=== PATIENT | male | born 1935 | race Caucasian/White ===

== ENCOUNTER 2017-08-04 23:02 | Emergency (ER) | payer MEDICARE, BC ==
[2017-08-04] MEDS ORDERED: ONDANSETRON 4 MG TAB.RAPDIS PO ONE (23:20)
[2017-08-04] MEDS ORDERED: ONDANSETRON 4 MG TAB.RAPDIS ONE (23:21)
[2017-08-05] MEDS ORDERED: ONDANSETRON HCL/PF 2 MG/ML VIAL IV ONE (00:05)
[2017-08-05] MEDS ORDERED: ONDANSETRON HCL/PF 2 MG/ML VIAL ONE (00:12)
--- NOTE | 2017-08-05 00:13 | ERNOTE ---
Dizziness ER Record Presenting Symptoms: dizziness Time Seen by Provider: 08/05/17 00:00 Source: patient Exam Limitations: no limitations Immunizations: IMMUNIZATION HX Immunizations Up to Date Yes History of Influenza Vaccine Yes Hx Pneumococcal Vaccination Yes Allergies/Adverse Reactions: Allergies Allergy/AdvReac Type Severity Reaction Status Date / Time No Known Allergies Allergy Verified 11/27/15 16:59 Home Medications: HOME MEDICATIONS Meclizine HCl [Antivert] 12.5 mg PO Q6H PRN #20 tab 08/05/17 [Last Taken Unknown ] Ondansetron HCl [Zofran] 1 - 2 tab PO Q8H PRN #10 tab 08/05/17 [Last Taken Unknown] - History of Present Illness Narrative: Pt states he was sitting watching TV when he began to get a little dizzy. He decided to take a walk but this did not help him to get better. Timing and Duration: sudden onset Severity: max: moderate Severity: currently: moderate Associated Symptoms: Present: nausea, vomiting. Absent: headache, numbness Sense of movement: Present: vague Decreased ability to stand/walk:: Present: off balance Review of Systems - Review of Systems Constitutional: Present: recent illness - "sinus problems" EYE: Present: no symptoms reported ENT: Present: nose congestion Respiratory: Absent: shortness of breath, cough Cardiology: Present: no symptoms reported Gastrointestinal/Abdominal: Present: nausea, vomiting Genitourinary: Present: no symptoms reported Musculoskeletal: Present: no symptoms reported Skin: Present: no symptoms reported Neurological: Present: no symptoms reported Endocrine: Present: no symptoms reported Hematologic/Lymphatic: Present: no symptoms reported Psych: Present: no symptoms reported - Patient's Past Medical History Patient History - Medical: No pertinent hx Patient History - Cardiac/Respiratory: No pertinent hx Patient History - Cancer: Prostate, Radiation Therapy Patient History - Surgical Procedures: Hernia Repair Patient History - Other: None - Social History Living Situations: spouse Abuse History: No History of abuse Psych History: No pertinent hx Smoking Status: Former smoker Have you smoked in the past 12 months: No Do you dip or chew tobacco: No Alcohol Use: none Drug Use: none - Immunizations Immunizations Up to Date: Yes Hx Pneumococcal Vaccination: Yes History of Influenza Vaccine: Yes Physical Exam - Physical Exam General Appearance: Present: wd/wn, alert, mild distress Head Exam: Present: normal inspection, no evidence of injury Eye Exam: Normal inspection: bilateral, PERRL: bilateral, EOMI: bilateral Ears, Nose, Throat: Present: normal ENT inspection, normal pharynx Neck: Present: normal inspection, nontender, supple Respiratory: Present: no respiratory distress, no accessory muscle use, lungs clear Cardiovascular/Chest: Present: regular rate, rhythm, no murmur Back Exam: Present: normal inspection, normal range of motion Extremity Exam: Present: normal inspection, no edema Neurological Exam: Present: alert, oriented, normal mood/affect Skin Exam: Present: normal color, warm/dry Lymphatic Exam: Present: no adenopathy ED Progress - Results and Orders Patient's Lab Results:: I have reviewed the patient's lab results. Results and Orders: Laboratory Tests 08/05/17 08/05/17 08/05/17 00:25 00:25 02:39 WBC 8.2 Hgb 14.9 Hct 45.0 Plt Count 112 L Neutrophils % 85.9 H Sodium 141 Potassium 4.3 Chloride 105 Carbon Dioxide 27.5 Anion Gap 12.8 BUN 22 Creatinine 1.11 Random Glucose 132 H Calcium 9.8 Total Bilirubin 0.4 AST 24 ALT 26 Alkaline Phosphatase 83 Total Protein 7.4 Albumin 3.8 Amylase 69 Lipase 158 Urine Color Yellow Urine Appearance Clear Urine pH 6.5 Ur Specific Mobile 1.020 Urine Protein Negative Urine Glucose (UA) Negative Urine Ketones Negative Urine Blood Negative Urine Nitrate Negative Urine Bilirubin Negative Urine Urobilinogen Normal Ur Leukocyte Esterase Negative Urine RBC 0-5 Urine WBC 0-5 Ur Epithelial Cells 0-5 Amorphous Sediment Few - 1+ Urine Bacteria None seen Urine Culture Comments No culture indicated - Vital Signs Patient's Vital Signs:: I have reviewed the patient's vital signs. Vital Signs: Vital Signs 08/04/17 23:04 Temperature 36.1 C L Pulse Rate 74 Respiratory 14 Rate Blood Pressure 162/99 O2 Sat by Pulse 98 Oximetry - X-Ray X-Ray #1 X-Ray: abdomen Interpretation: Interp. by me, Reviewed by me X-ray Comments: Moderate stool throughout. No a/f levels or evidence for obstruction. No mass noted. - Progress/Reassessment Chief Complaint: Dizziness Progress:: Improved Departure Clinical Impression: Dizziness Constipation Qualifiers: Constipation type: slow transit constipation Qualified Code(s): K59.01 - Slow transit constipation Vomiting Qualifiers: Vomiting type: unspecified Vomiting Intractability: non-intractable Nausea presence: with nausea Qualified Code(s): R11.2 - Nausea with vomiting, unspecified - Departure Disposition: Home Follow Up Needed Condition: Good Instructions: Nausea, Adult, Vertigo, [id number], Constipation, Adult, Easy- to-Read Prescriptions: Meclizine HCl [Antivert] 12.5 mg PO Q6H PRN #20 tab PRN Reason: DIZZINESS Ondansetron HCl [Zofran] 1 - 2 tab PO Q8H PRN #10 tab PRN Reason: Nausea
[2017-08-05 00:33] LABS: Hemoglobin 14.9 gm/dL (13.5-18.0); Mean Cell Volume 85.9 fl (78-100); Mean Corpuscular Hemoglobin 28.4 pg (27-31); Mean Corpuscular Hgb Conc 33.1 g/dl (32-36); Neutrophil % 85.9 % (42-75.0); Platelet Count 112 K/mm3 (150-450); Red Blood Count 5.24 M/mm3 (4.7-6.0); Red Cell Distribution Width 14.3 % (11.5-14.0); White Blood Count 8.2 K/mm3 (4.0-10.5)
[2017-08-05 00:45] LABS: Albumin * 3.8 gm/dl (3.4-5.0); Anion Gap 12.8 mmol/L (6.8-13.8); BUN/Creatinine Ratio 19.8 (9.0-21.6); Bilirubin, Total 0.4 mg/dL (0.0-1.1); Ca. Corrected For Albumin 9.6 mg/dL (8.4-10.2); Calcium * 9.8 mg/dL (7.9-10.9); Carbon Dioxide 27.5 mmol/L (24-32.6); Potassium 4.3 mmol/L (3.4-4.6); Total Protein 7.4 gm/dL (6.2-8.2)
[2017-08-05] MEDS ORDERED: NORMAL SALINE 1,000 ML IV ONE (01:27)
[2017-08-05 02:46] LABS: Urine Bilirubin Negative (NEGATIVE); Urine Blood Negative /ul (NEGATIVE); Urine Ketone Negative (NEGATIVE); Urine Nitrite Negative (NEGATIVE); Urine Protein Negative (NEGATIVE); Urine Urobilinogen Normal (NORMAL); Urine pH 6.5 pH (5.0-7.0)
[2017-08-05 02:49] LABS: Urine Amorphous Sediment Few - 1+ (NONE-FEW); Urine Appearance Clear; Urine Bacteria None Seen; Urine Color Yellow; Urine RBC 0-5 /hpf (0-5); Urine WBC 0-5 /hpf (0-5)
[2017-08-05 03:38] VITALS: BP 141/69
== END 2017-08-05 03:37 | disposition home or self-care (01) ==
LOC: ER 23:02
DX: R42 Dizziness and giddiness (principal); K59.01 Slow transit constipation; R11.2 Nausea with vomiting, unspecified
CPT/HCPCS: 36415; 74020; 80053; 81001; 82150; 83690; 85025; 96374; 99284; J2405